=== PATIENT | male | born 1940 | race Caucasian/White ===

== ENCOUNTER 2018-01-14 14:46 | Inpatient (IN) | END 2018-01-16 13:35 | disposition home or self-care (01) | DRG 310 ==

== ENCOUNTER → 2018-03-01 | Outpatient (CLI) | END | disposition home or self-care (01) ==

== ENCOUNTER 2018-03-05 11:34 | Day surgery (SDC) | END 2018-03-05 14:27 | disposition home or self-care (01) ==